=== PATIENT | female | born 1965 | race Caucasian/White ===

== ENCOUNTER 2017-03-02 07:49 | Emergency (ER) | payer MEDICAID ==
[2017-03-02 08:04] VITALS: BP 179/102
[2017-03-02] MEDS ORDERED: HYDROmorphone 0.5 MG/0.5 ML Syringe IM ONE (08:32)
[2017-03-02] MEDS ORDERED: Cyclobenzaprine 10 MG Tab PO ONE (08:32)
--- NOTE | 2017-03-02 08:54 | EDM.PDOC ---
ED HPI GENERAL MEDICAL PROBLEM - General Chief Complaint: Lower Extremity Injury/Pain Stated Complaint: LEFT HIP PAIN Time Seen by Provider: 03/02/17 08:33 Source of Information: Reports: Patient, Family History Limitations: Reports: No Limitations - History of Present Illness INITIAL COMMENTS - FREE TEXT/NARRATIVE: Pt arrived with pain in the lower back and radiating down her left leg. This is very severe at this point. pt did have a bite on the left buttock but this does not look red nd hot. Onset: Gradual Duration: Day(s):, Getting Worse Location: Reports: Back, Lower Extremity, Left Associated Symptoms: Reports: No Other Symptoms Left Hip Pain Score (Numeric/FACES): 10 - Related Data Allergies Allergy/AdvReac Type Severity Reaction Status Date / Time No Known Allergies Allergy Verified 11/15/16 07:43 Home Meds: Home Meds Albuterol [Ventolin HFA] 1 puff INH Q4H PRN 06/13/13 [History] Ferrous Sulfate [Ferrous Sulfate] 325 mg PO BID 06/13/13 [History] Imipramine HCl [Imipramine HCl] 25 mg PO DAILY 06/13/13 [History] Sertraline [Zoloft] 50 mg PO DAILY 06/13/13 [History] Triamterene/Hydrochlorothiazid [Triamterene-HCTZ 37.5-25 MG] 1 cap PO DAILY 11/24 [History] metFORMIN HCl [Metformin HCl ER] 500 mg PO DAILY 06/13/13 [History] Oxybutynin 5 mg PO DAILY 06/25/14 [History] *Lipitor 1 dose PO DAILY 11/15/16 [History] Fluticasone/Salmeterol [Advair 250-50 Diskus] 1 each IH BID 11/15/16 [History] Levothyroxine Sodium [Levothyroxine Sodium] 225 mcg PO DAILY 11/15/16 [History] Past Medical History Cardiovascular 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: High Cholesterol, Hypertension Respiratory 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: Asthma, Bronchitis, Recurrent, Pneumonia, Recurrent 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: Musculoskeletal 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: Arthritis Neurological 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: Migraines Psychiatric 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: Addiction, Depression Endocrine/Metabolic 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: Diabetes, Type II, Hypothyroidism Hematologic 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: Anemia - Infectious Disease History Infectious Disease 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: Other (See Below) Other Infectious Disease History: unknown - Past Surgical History HEENT Surgical 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: LASIK GI Surgical 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: Bariatric Procedure, Cholecystectomy Female Surgical 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: Section Social & Family History - Tobacco Use Smoking Status *Q: Unknown Ever Smoked Years of Tobacco use: 40 Packs/Tins Daily: 1 Used Tobacco, but Quit: No Second Hand Smoke Exposure: No - Caffeine Use Caffeine Use: Reports: None - Alcohol Use Days Per Week of Alcohol Use: 1 Number of Drinks Per Day: 4 Total Drinks Per Week: 4 - Recreational Drug Use Recreational Drug Use: No Review of Systems - Review of Systems Review Of Systems: See Below Constitutional: Reports: No Symptoms Eyes: Reports: No Symptoms Ears: Reports: No Symptoms Nose: Reports: No Symptoms Mouth/Throat: Reports: No Symptoms Respiratory: Reports: No Symptoms Cardiovascular: Reports: No Symptoms GI/Abdominal: Reports: No Symptoms Genitourinary: Reports: No Symptoms Musculoskeletal: Reports: Back Pain, Other (pain in the lower lumbar loraine radiating down the left leg. ) Skin: Reports: No Symptoms Psychiatric: Reports: Anxiety Trauma Exam - Physical Exam Exam: See Below Text/Narrative:: pt arrived with severe pain in left lower back and radiating down the left leg. . She is so uncomfortable she was unable to sit or lie down at first. Exam Limited By: No Limitations General Appearance: Reports: Alert, Severe Distress Head: Reports: Atraumatic Eyes: Bilateral Eye: EOMI, Normal Inspection, PERRL Ears: Reports: Normal TMs Nose: Reports: Normal Inspection Throat/Mouth: Reports: Normal Oropharynx Neck: Reports: Non-Tender Respiratory Exam: Reports: No Respiratory Distress Cardiovascular: Reports: Regular Rate, Rhythm GI/Abdominal: Reports: Soft, Non-Tender (Female) Exam: Deferred Rectal (Female) Exam: Deferred Back: Reports: Other (pt has a bite on her buttock area. She is tender in the left lower lumbar area. The pain is going down her left leg and she has a positive straight leg raising) Extremities: No Evidence of Injury Course - Vital Signs Last Recorded V/S: Last Vital Signs Temp 35.5 C 03/02/17 08:08 Pulse 76 03/02/17 08:08 Resp 20 03/02/17 08:08 BP 179/102 H 03/02/17 08:08 Pulse Ox 96 03/02/17 08:08 - Orders/Labs/Meds Orders: Active Orders 24 hr Category Date Time Status CULTURE URINE [RM] Stat Lab 03/02/17 11:25 Uncollected Labs: Laboratory Tests 03/02/17 03/02/17 03/02/17 Range/Units 09:17 09:17 11:05 WBC 8.6 (4.5-11.0) K/uL RBC 5.15 (3.30-5.50) M/uL Hgb 14.8 (12.0-15.0) g/dL Hct 44.1 (36.0-48.0) % MCV 86 (80-98) fL MCH 29 (27-31) pg MCHC 34 (32-36) % Plt Count 196 (150-400) K/uL Neut % (Auto) 77 H (36-66) % Lymph % (Auto) 14 L (24-44) % [place] % (Auto) 7 H (2-6) % Eos % (Auto) 2 (2-4) % Baso % (Auto) 0 (0-1) % Sodium 134 L (140-148) mmol/L Potassium 4.0 (3.6-5.2) mmol/L Chloride 97 L (100-108) mmol/L Carbon Dioxide 26 (21-32) mmol/L Anion Gap 15.0 H (5.0-14.0) mmol/L BUN 9 (7-18) mg/dL Creatinine 0.7 (0.6-1.0) mg/dL Est Cr Clr Drug Dosing 78.65 mL/min Estimated GFR (MDRD) > 60 (>60) Glucose 145 H (74-106) mg/dL Calcium 7.9 L (8.5-10.1) mg/dL Total Bilirubin 0.8 (0.2-1.0) mg/dL AST 18 (15-37) U/L ALT 21 (12-78) U/L Alkaline Phosphatase 96 (46-116) U/L Total Protein 7.0 (6.4-8.2) g/dL Albumin 3.5 (3.4-5.0) g/dL Globulin 3.5 (2.3-3.5) g/dL Albumin/Globulin Ratio 1.0 L (1.2-2.2) Urine Color Yellow Urine Appearance Cloudy Urine pH 5.0 (4.5-8.0) Ur Specific [place] 1.020 (1.008-1.030) Urine Protein Negative (NEGATIVE) mg/dL Urine Glucose (UA) Normal (NEGATIVE) mg/dL Urine Ketones Negative (NEGATIVE) mg/dL Urine Occult Blood Large (NEGATIVE) Urine Nitrite Negative (NEGATIVE) Urine Bilirubin Negative (NEGATIVE) Urine Urobilinogen Normal (NORMAL) mg/dL Ur Leukocyte Esterase Negative (NEGATIVE) Urine RBC 5-10 H (0-5) Urine WBC 0-5 (0-5) Ur Epithelial Cells Few Amorphous Sediment Rare Urine Bacteria Moderate Urine Mucus Rare Meds: Medications Discontinued Medications Generic Name Dose Route Start Last Admin Trade Name Freq PRN Reason Stop Dose Admin Cyclobenzaprine HCl 10 mg 03/02/17 08:32 03/02/17 08:37 Flexeril PO 03/02/17 08:33 10 mg ONETIME ONE Administration Diazepam 5 mg 03/02/17 10:16 Valium IVPUSH 03/02/17 10:17 ONETIME ONE Hydromorphone HCl 0.5 mg 03/02/17 08:32 03/02/17 08:37 Dilaudid IM 03/02/17 08:33 0.5 mg ONETIME ONE Administration Hydromorphone HCl 1 mg 03/02/17 09:51 03/02/17 09:55 Dilaudid IM 03/02/17 09:52 1 mg ONETIME ONE Administration Hydromorphone HCl 1 mg 03/02/17 11:31 Dilaudid IVPUSH 03/02/17 11:32 ONETIME ONE Hydromorphone HCl 1 mg 03/02/17 11:50 03/02/17 12:10 Dilaudid IM 03/02/17 11:51 1 mg ONETIME ONE Administration Ketorolac Tromethamine 60 mg 03/02/17 09:15 03/02/17 09:22 Toradol IM 03/02/17 09:16 60 mg ONETIME ONE Administration - Re-Assessments/Exams Free Text/Narrative Re-Assessment/Exam: 03/02/17 09:44 pt has a severe pain in her lumbar on the left. She had a lumbar spine which showed narrowing of L4_L5 She has no evidence of compression fractures. Her hip shows moderate degenerative changes. 03/02/17 13:03 pt received 2 mg ogf dilaudid , flexeril 10mg at hs. . She is much more comfortable. Lumbar spin series showed disc disease at L4_ L5. Because she was not getting good relief of the pain and it was so severe a Mri of the lumbar spine which showed a extruded disc at l4_ L5, this was torn. Departure - Departure Time of Disposition: 13:06 Disposition: Home, Self-Care 01 Condition: fair Clinical Impression: Lumbar disc disease - Discharge Information Referrals: Fernanda Vicente MD [Primary Care Provider] - Forms: ED Department Discharge Care Plan Goals: moist warm packs to the left lumbar area. rest, flexeril 10mg qam and qpm, percocet 5/325 q6h prn for pin, medrol dospak. appt with regular Dr in 1week for recheck on her back, Pt will see Dr Randall at the clinic. If not better she will need a epidural and orthopedic consult. - My Orders Last 24 Hours: My Active Orders 03/02/17 11:25 CULTURE URINE [RM] Stat - Assessment/Plan Last 24 Hours: My Active Orders 03/02/17 11:25 CULTURE URINE [RM] Stat
--- NOTE | 2017-03-02 08:58 | CR ---
Mild-moderate joint left hip. No fracture.
--- NOTE | 2017-03-02 09:03 | CR ---
5 lumbar type vertebral bodies. Moderate disc height loss L4-5. Mild facet arthropathy L4-5 and L5-S 1. No compression deformity. No definitive pars defects.
[2017-03-02] MEDS ORDERED: Ketorolac 60 MG/2 ML SDV IM ONE (09:15)
[2017-03-02] MEDS ORDERED: HYDROmorphone 1 MG/ML Syringe IM ONE ×2 (09:51→11:50)
[2017-03-02] MEDS ORDERED: HYDROmorphone 1 MG/ML Syringe IVPUSH ONE (11:31)
[2017-03-02] MEDS ORDERED: HYDROmorphone 1 MG/ML Syringe IV ONE (12:10)
--- NOTE | 2017-03-02 12:40 | MR ---
MR lumbar spine. Indication: Pain. Findings: Motion artifact. 5 lumbar type vertebral bodies. Conus terminates normal anatomic position . Moderate disc height loss L4-5. L1-2: Mild disc bulge. No canal stenosis or foraminal narrowing. L2-3: Mild disc bulge. No canal stenosis. No foraminal narrowing. L3-4: Mild facet arthropathy bilaterally. Mild disc bulge. AP dimension of canal is just under 10 mm indicating slight canal stenosis. No foraminal narrowing. L4-5: Best visualized on axial images there is a broad-based disc protrusion left laterally. Combine d with facet arthropathy there is severe left-sided foraminal narrowing. No right-sided foraminal na rrowing. Prominent epidural fat with mild spinal canal stenosis. Moderate facet arthropathy. Radial tear of the disc as well. L5-S1: Moderate mild facet arthropathy. Minimal bulging of the disc. No canal stenosis or foraminal narrowing. There is a left adrenal gland mass measuring 22 mm. Consider nonemergent, noncontrast CT abdomen fol low-up to confirm a an adenoma. Impression: 1. Left lateral disc protrusion L4-5. Radial tearing of the disc this location. Correlate for left L 4 nerve root radiculopathy.
== END 2017-03-02 13:35 | disposition home or self-care (01) ==
LOC: JP.ED 07:49
DX: M51.9 Unspecified thoracic, thoracolumbar and lumbosacral intervertebral disc disorder (principal); J45.909 Unspecified asthma, uncomplicated; I10 Essential (primary) hypertension; E78.00 Pure hypercholesterolemia, unspecified; F32.9 Major depressive disorder, single episode, unspecified; E11.9 Type 2 diabetes mellitus without complications; E03.9 Hypothyroidism, unspecified; Z79.899 Other long term (current) drug therapy; Z90.49 Acquired absence of other specified parts of digestive tract; Z98.84 Bariatric surgery status; Z98.890 Other specified postprocedural states
CPT/HCPCS: 36415; 72110; 72148; 73502; 80053; 81001; 85025; 87086; 87088; 87186; 96372; 99284; A9270; J1170; J1885

== ENCOUNTER 2017-12-02 17:11 | Emergency (ER) | payer MEDICAID ==
[2017-12-02 17:34] VITALS: BP 141/79
--- NOTE | 2017-12-02 17:45 | EDM.PDOC ---
ED HPI GENERAL MEDICAL PROBLEM - General Chief Complaint: Skin Complaint Stated Complaint: R FOREARM LACERATION Time Seen by Provider: 12/02/17 17:30 Source of Information: Reports: Patient History Limitations: Reports: No Limitations - History of Present Illness INITIAL COMMENTS - FREE TEXT/NARRATIVE: 52 yo female had a skin lesion removed from her R distal/dorsal forearm. Later she returned there and they took her stitches out. Today the wound opened up again and it was too late to go to the clinic so she came here. 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 (see below) (none) - Related Data Allergies Allergy/AdvReac Type Severity Reaction Status Date / Time No Known Allergies Allergy Verified 11/15/16 07:43 Home Meds: Home Meds Albuterol [Ventolin HFA] 1 puff INH Q4H PRN 06/13/13 [History] Ferrous Sulfate [Ferrous Sulfate] 325 mg PO BID 06/13/13 [History] Imipramine HCl [Imipramine HCl] 25 mg PO DAILY 06/13/13 [History] Sertraline [Zoloft] 50 mg PO DAILY 06/13/13 [History] Triamterene/Hydrochlorothiazid [Triamterene-HCTZ 37.5-25 MG] 1 cap PO DAILY 11/24 [History] metFORMIN HCl [Metformin HCl ER] 500 mg PO DAILY 06/13/13 [History] Oxybutynin 5 mg PO DAILY 06/25/14 [History] *Lipitor 1 dose PO DAILY 11/15/16 [History] Fluticasone/Salmeterol [Advair 250-50 Diskus] 1 each IH BID 11/15/16 [History] Levothyroxine Sodium [Levothyroxine Sodium] 225 mcg PO DAILY 11/15/16 [History] Past Medical History Cardiovascular 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: High Cholesterol, Hypertension Respiratory 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: Asthma, Bronchitis, Recurrent, Pneumonia, Recurrent 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: Musculoskeletal 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: Arthritis Neurological 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: Migraines Psychiatric 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: Addiction, Depression Endocrine/Metabolic 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: Diabetes, Type II, Hypothyroidism Hematologic 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: Anemia - Infectious Disease History Infectious Disease 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: Other (See Below) Other Infectious Disease History: unknown - Past Surgical History HEENT Surgical 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: LASIK GI Surgical 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: Bariatric Procedure, Cholecystectomy Female Surgical 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: Section Social & Family History - Tobacco Use Smoking Status *Q: Unknown Ever Smoked Years of Tobacco use: 40 Packs/Tins Daily: 1 Used Tobacco, but Quit: No Second Hand Smoke Exposure: No - Caffeine Use Caffeine Use: Reports: None - Alcohol Use Days Per Week of Alcohol Use: 1 Number of Drinks Per Day: 4 Total Drinks Per Week: 4 - Recreational Drug Use Recreational Drug Use: No ED ROS GENERAL - Review of Systems Review Of Systems: See Below Constitutional: Reports: No Symptoms Skin: Reports: Wound (1 cm open surgical wound to the dorsal/distal R forearm. No drainage or sign of infection. ). Denies: Bruising, Erythema Neurological: Reports: No Symptoms ED EXAM, SKIN/RASH Exam: See Below Exam Limited By: No Limitations General Appearance: Alert, WD/WN, No Apparent Distress, Obese Neurological: Alert, Oriented, CN II-XII Intact, Normal Cognition, No Motor/ Sensory Deficits Psychiatric: Normal Affect, Normal Mood Skin: Warm, Intact, Normal Color, No Rash, Wound/Incision (1 cm wound to the dorsal/distal R forearm. No redness. No drainage. Wound is gaping slightly. ) Location, Skin: Upper Extremity, Right Characteristics: Linear. No: Erythematous Associated features: No: Warmth, Tenderness, Swelling, Induration, Inflammation Course - Vital Signs Text/Narrative:: Wound steri stripped and a dry dressing applied. Last Recorded V/S: Last Vital Signs Temp 36.0 C 12/02/17 17:30 Pulse 70 12/02/17 17:30 Resp 16 12/02/17 17:30 BP 141/79 H 12/02/17 17:30 Pulse Ox 96 12/02/17 17:30 Departure - Departure Time of Disposition: 17:50 Disposition: Home, Self-Care 01 Condition: Good Clinical Impression: Encounter for wound re-check - Discharge Information Referrals: Fernanda Vicente MD [Primary Care Provider] - Forms: ED Department Discharge
== END 2017-12-02 18:04 | disposition home or self-care (01) ==
LOC: JP.ED 17:11
DX: S51.811D Laceration without foreign body of right forearm, subsequent encounter (principal); E78.00 Pure hypercholesterolemia, unspecified; I10 Essential (primary) hypertension; E11.9 Type 2 diabetes mellitus without complications; E03.9 Hypothyroidism, unspecified; Z79.899 Other long term (current) drug therapy; Z79.84 Long term (current) use of oral hypoglycemic drugs; Y83.9 Surgical procedure, unspecified as the cause of abnormal reaction of the patient, or of later complication, without mention of misadventure at the time of the procedure
CPT/HCPCS: 99283

== ENCOUNTER 2019-11-28 19:25 | Emergency (ER) | payer MEDICAID ==
[2019-11-28 19:55] VITALS: BP 124/79; PULSE 76
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
== END 2019-11-29 11:22 ==
LOC: JP.ED 19:25
DX: F32.9 Major depressive disorder, single episode, unspecified (principal); F10.120 Alcohol abuse with intoxication, uncomplicated; E78.00 Pure hypercholesterolemia, unspecified; I10 Essential (primary) hypertension; J45.909 Unspecified asthma, uncomplicated; E11.9 Type 2 diabetes mellitus without complications; E03.9 Hypothyroidism, unspecified; D64.9 Anemia, unspecified; F17.210 Nicotine dependence, cigarettes, uncomplicated; Y90.8 Blood alcohol level of 240 mg/100 ml or more; Z79.899 Other long term (current) drug therapy; Z79.890 Hormone replacement therapy; Z79.84 Long term (current) use of oral hypoglycemic drugs; Z79.51 Long term (current) use of inhaled steroids
CPT/HCPCS: 36415; 80048; 80305-QW; 80307; 81001; 84443; 85027; 99285

== ENCOUNTER 2021-01-08 18:10 | Emergency (ER) | payer MEDICAID ==
[2021-01-08 18:52] VITALS: BP 157/92; PULSE 85
[2021-01-08] MEDS ORDERED: Ketorolac 60 MG/2 ML SDV IM ONE (19:23)
--- NOTE | 2021-01-08 19:29 | EDM.PDOC ---
ED HPI GENERAL MEDICAL PROBLEM - General Chief Complaint: Back Pain or Injury Stated Complaint: LOWER BACK PAIN Time Seen by Provider: 01/08/21 19:10 Source of Information: Reports: Patient, Old Records, RN History Limitations: Reports: No Limitations - History of Present Illness INITIAL COMMENTS - FREE TEXT/NARRATIVE: 55 yo female here with low back pain getting worse over the past 3 days. Has not tried to get into the clinic for this. She denies injury. Pain is worse with walking. Has had this at least once in the past. No self tx. Onset: Gradual Onset Date: 01/05/21 Duration: Day(s): (3), Getting Worse Location: Reports: Back (low) Quality: Reports: Ache Severity: Moderate Improves with: Reports: Rest Worsens with: Reports: Movement (walking) Context: Reports: Other (See HPI) Associated Symptoms: Reports: No Other Symptoms Treatments ADDICTION PSYCHIATRIST: Reports: Other (see below) (none) Lower Back Pain Score (Numeric/FACES): 7 - Related Data Allergies Allergy/AdvReac Type Severity Reaction Status Date / Time No Known Allergies Allergy Verified 11/28/19 19:43 Home Meds: Home Meds Albuterol [Ventolin HFA] 1 puff INH Q4H PRN 06/13/13 [History] Ferrous Sulfate 325 mg PO BID 06/13/13 [History] Imipramine HCl 25 mg PO DAILY 06/13/13 [History] Sertraline [Zoloft] 50 mg PO DAILY 06/13/13 [History] Triamterene/Hydrochlorothiazid [Triamterene-HCTZ 37.5-25 MG] 1 cap PO DAILY 06/13/13 [History] metFORMIN HCl [Metformin HCl ER] 500 mg PO DAILY 06/13/13 [History] Oxybutynin 5 mg PO DAILY 06/25/14 [History] Fluticasone Propion/Salmeterol [Advair 250-50 Diskus] 1 each IH BID 11/15/16 [History] Levothyroxine Sodium 225 mcg PO DAILY 11/15/16 [History] atorvaSTATin [Lipitor] 10 mg PO DAILY 11/28/19 [History] Past Medical History Cardiovascular 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: High Cholesterol, Hypertension Respiratory 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: Asthma, Bronchitis, Recurrent, Pneumonia, Recurrent 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: Musculoskeletal 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: Arthritis, Back Pain, Chronic Neurological 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: Migraines Psychiatric 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: Addiction, Depression, Suicidal Ideation Endocrine/Metabolic 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: Diabetes, Type II, Hypothyroidism Hematologic 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: Anemia - Infectious Disease History Infectious Disease 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: Other (See Below) Other Infectious Disease History: unknown - Past Surgical History HEENT Surgical 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: LASIK GI Surgical 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: Bariatric Procedure, Cholecystectomy Female Surgical 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: Section Social & Family History - Tobacco Use Tobacco Use Status *Q: Current Every Day Tobacco User Years of Tobacco use: 30 Packs/Tins Daily: 0.5 - Caffeine Use Caffeine Use: Reports: Soda - Recreational Drug Use Recreational Drug Use: No ED ROS GENERAL - Review of Systems Review Of Systems: See Below Constitutional: Reports: No Symptoms HEENT: Reports: No Symptoms Respiratory: Reports: No Symptoms Cardiovascular: Reports: No Symptoms GI/Abdominal: Reports: No Symptoms Musculoskeletal: Reports: Back Pain (low) Skin: Reports: No Symptoms Neurological: Reports: No Symptoms ED EXAM,LOWER BACK PAIN/INJURY - Physical Exam Exam: See Below Exam Limited By: No Limitations General Appearance: Alert, WD/WN, No Apparent Distress, Obese Eye Exam: Bilateral Eye: Normal Inspection Back Exam: Normal Inspection, Other (R SI joint pain on palpation). No: CVA Tenderness (R), CVA Tenderness (L), Vertebral Tenderness Extremities: Normal Inspection, Normal Range of Motion, Non-Tender, No Pedal Edema Neurological: Alert, Normal Mood/Affect, CN II-XII Intact, No Motor/Sensory Deficits, Oriented x 3 Psychiatric: Normal Affect, Normal Mood Skin Exam: Warm, Dry, Intact, Normal Color, No Rash Course - Vital Signs Last Recorded V/S: Last Vital Signs Temp 36.4 C 01/08/21 18:46 Pulse 85 01/08/21 18:46 Resp 16 01/08/21 18:46 BP 157/92 H 01/08/21 18:46 Pulse Ox 97 01/08/21 18:46 - Orders/Labs/Meds Orders: Active Orders 24 hr Category Date Time Status Ketorolac [Toradol] Med 01/08/21 19:23 Once 60 mg IM ONETIME ONE Departure - Departure Time of Disposition: 20:00 Disposition: Home, Self-Care 01 Condition: Good Clinical Impression: Inflammation of right sacroiliac joint - Discharge Information *PRESCRIPTION DRUG MONITORING PROGRAM REVIEWED*: Not Applicable *COPY OF PRESCRIPTION DRUG MONITORING REPORT IN PATIENT KEYONNA: Not Applicable Referrals: Perico Puente NP [Primary Care Provider] - Additional Instructions: Take meloxicam 7.5 mg every 12 hrs starting at bedtime tonight. Add acetaminophen up to 1000 mg every 6 hrs for added pain relief. F/U with PT for further evaluation and treatment. See your provider if not resolving with Meloxicam and PT. Sepsis Event Note (ED) - Evaluation Sepsis Screening Result: No Definite Risk - Focused Exam Vital Signs: Vital Signs Temp Pulse Resp BP Pulse Ox 01/08/21 18:46 36.4 C 85 16 157/92 H 97 01/08/21 18:42 36.4 C 85 16 157/92 H 97 - My Orders Last 24 Hours: My Active Orders 01/08/21 19:23 Ketorolac [Toradol] 60 mg IM ONETIME ONE - Assessment/Plan Last 24 Hours: My Active Orders 01/08/21 19:23 Ketorolac [Toradol] 60 mg IM ONETIME ONE
== END 2021-01-08 20:04 | disposition home or self-care (01) ==
LOC: JP.ED 18:10
DX: M46.1 Sacroiliitis, not elsewhere classified (principal); J45.909 Unspecified asthma, uncomplicated; I10 Essential (primary) hypertension; E78.00 Pure hypercholesterolemia, unspecified; E11.9 Type 2 diabetes mellitus without complications; E03.9 Hypothyroidism, unspecified; D64.9 Anemia, unspecified; Z72.0 Tobacco use; Z79.84 Long term (current) use of oral hypoglycemic drugs; Z79.899 Other long term (current) drug therapy
CPT/HCPCS: 96372; 99282; 99283; J1885

== ENCOUNTER 2023-09-01 08:28 | Day surgery (SDC) | payer MEDICAID ==
[2023-09-01] MEDS ORDERED: Lactated Ringers 1,000 ML IV SCH (09:15)
[2023-09-01] MEDS ORDERED: fentaNYL 50 MCG/ML SDV ONE (09:31)
[2023-09-01] MEDS ORDERED: Midazolam 1 MG/ML 2 ML SDV ONE (09:31)
[2023-09-01] MEDS ORDERED: Propofol 200 MG/20 ML SDV ONE (09:31)
[2023-09-01 13:32] VITALS: BP 140/92; PULSE 61
== END 2023-09-01 13:37 | disposition home or self-care (01) ==
LOC: JP.SDS 08:28
PROVIDERS: ATTEND Family Medicine
DX: D12.8 Benign neoplasm of rectum (principal); I10 Essential (primary) hypertension; E11.9 Type 2 diabetes mellitus without complications; J44.9 Chronic obstructive pulmonary disease, unspecified
CPT/HCPCS: 88305; J2250; J2704; J3010; J7120

== ENCOUNTER 2024-07-03 17:11 | Emergency (ER) | payer MEDICAID ==
[2024-07-03 17:55] LABS: APPEARANCE,URINE CLOUDY (CLEAR); BILIRUBIN,URINE NEGATIVE (NEGATIVE); COLOR,URINE YELLOW (YELLOW); GLUCOSE,URINE NEGATIVE (NEGATIVE); KETONES,URINE TRACE mg/dL (NEGATIVE); LEUKOCYTE ESTERASE,URINE TRACE (NEGATIVE); NITRITE,URINE POSITIVE (NEGATIVE); OCCULT BLOOD,URINE TRACE-INTACT (NEGATIVE); PROTEIN,URINE NEGATIVE (NEGATIVE); UROBILINOGEN,URINE 0.2 EU/dL (0.2-1.0)
[2024-07-03 17:57] LABS: BASOPHILS PERCENT AUTO 0.3 % (0.1-1.3); EOSINOPHILS ABSOLUTE AUTO 0.12 K/uL (0.00-0.40); EOSINOPHILS PERCENT AUTO 1.8 % (0.0-5.4); HEMATOCRIT 39.7 % (34.3-46.0); IMMATURE GRAN PERCENT AUTO 0.1 % (0.0-0.7); LYMPHOCYTES ABSOLUTE AUTO 2.18 K/uL (0.8-3.3); LYMPHOCYTES PERCENT AUTO 32.2 % (11.4-47.7); MEAN CORPUSCULAR HEMOGLOBIN 30.4 pg (31.6-35.5); MEAN CORPUSCULAR HGB CONC 35.3 g/dL (31.6-35.5); MEAN CORPUSCULAR VOLUME 86.1 fL (81.4-99.0); MONOCYTES ABSOLUTE AUTO 0.43 K/uL (0.20-0.90); MONOCYTES PERCENT AUTO 6.4 % (3.3-12.6); NEUTROPHILS ABSOLUTE AUTO 4.01 K/uL (1.0-7.6); NEUTROPHILS PERCENT AUTO 59.2 % (40.0-78.1); PLATELET COUNT,PLT 181 K/uL (130-375); RED BLOOD CELL COUNT 4.61 M/uL (3.77-5.24); WHITE BLOOD CELL COUNT,WBC 6.8 K/uL (3.2-11.0)
[2024-07-03 17:58] LABS: BASOPHILS ABSOLUTE AUTO 0.02 K/uL (0.00-0.10); IMMATURE GRAN ABSOLUTE AUTO 0.01 K/uL (0.00-0.23)
[2024-07-03 18:01] LABS: AMORPHOUS SEDIMENT,URINE NOT SEEN; BACTERIA,URINE MANY; EPITHELIAL CELLS,URINE FEW; MUCUS,URINE NOT SEEN; RBC,URINE 0-5 (0-5); WBC,URINE 0-5 (0-5)
[2024-07-03 18:02] LABS: INR 1.1; PROTHROMBIN TIME 10.8 sec (9.2-10.6); PTT,PARTIAL THROMBOPLSTIN TIME 25.3 sec (21.8-27.3)
[2024-07-03 18:09] LABS: A/G RATIO 1.3 (1.2-2.2); ALANINE AMINOTRANSFERASE,ALT 56 U/L (12-78); ALKALINE PHOSPHATASE 81 U/L (46-116); ASPARTATE AMNIOTRANSFERASE,AST 47 U/L (15-37); BILIRUBIN TOTAL 0.5 mg/dL (0.2-1.0); BLOOD UREA NITROGEN,BUN 11 mg/dL (7-18); CARBON DIOXIDE,CO2 29 mmol/L (21-32); CHLORIDE,CL 94 mmol/L (100-108); CREATININE 0.9 mg/dL (0.6-1.0); ESTIMATED GFR 74 mL/min (>60); GLUCOSE RANDOM 76 mg/dL (74-106); MAGNESIUM 1.3 mg/dL (1.8-2.4); POTASSIUM,K 3.9 mmol/L (3.6-5.2); PROTEIN TOTAL,TP 7.1 g/dL (6.4-8.2); SODIUM,NA 134 mmol/L (140-148); TROPONIN I HIGH SENSITIVITY 6.5 pg/mL (<=60.3)
[2024-07-03 18:12] LABS: ANION GAP 14.9 mmol/L (5.0-14.0)
[2024-07-03] MEDS: Magnesium Sulfate/Water 2 GM in Premix Bag 1 BAG IV ONE (18:46)
[2024-07-03] MEDS: Pantoprazole 40 MG Tab.CR PO ONE (18:50)
[2024-07-03] MEDS: Nitrofurantoin Monohydrate/Macrocrystalline 100 MG Cap PO ONE (19:09)
[2024-07-03 19:35] VITALS: BP 156/84; PULSE 70
== END 2024-07-03 20:41 | disposition home or self-care (01) ==
LOC: JP.ED 17:11
DX: R07.89 Other chest pain (principal); N30.00 Acute cystitis without hematuria; E83.42 Hypomagnesemia; I10 Essential (primary) hypertension; E78.00 Pure hypercholesterolemia, unspecified; J45.909 Unspecified asthma, uncomplicated; E11.9 Type 2 diabetes mellitus without complications; E03.9 Hypothyroidism, unspecified; Z90.49 Acquired absence of other specified parts of digestive tract; Z79.899 Other long term (current) drug therapy; Z79.890 Hormone replacement therapy; Z79.82 Long term (current) use of aspirin
CPT/HCPCS: 36415; 71045; 80053; 80307; 81001; 83735; 84484; 85025; 85610; 85730; 87086; 93005; 96365; 96366; 99285; A9270; J3475; 87088; 87186

== ENCOUNTER 2024-07-08 11:46 | Emergency (ER) | payer MEDICAID ==
[2024-07-08 12:00] VITALS: BP 134/86; PULSE 73
[2024-07-08] MEDS: Hypromellose 0.3% Ophth Soln 15 ML Bottle EYEBOTH PRN (13:01)
== END 2024-07-08 13:14 | disposition home or self-care (01) ==
LOC: JP.ED 11:46
DX: H53.8 Other visual disturbances (principal); F17.210 Nicotine dependence, cigarettes, uncomplicated; I10 Essential (primary) hypertension; J44.9 Chronic obstructive pulmonary disease, unspecified; E78.00 Pure hypercholesterolemia, unspecified; E03.9 Hypothyroidism, unspecified; E11.9 Type 2 diabetes mellitus without complications; M19.90 Unspecified osteoarthritis, unspecified site; Z79.82 Long term (current) use of aspirin; Z79.84 Long term (current) use of oral hypoglycemic drugs; Z79.899 Other long term (current) drug therapy
CPT/HCPCS: 99283

== ENCOUNTER 2024-08-28 14:32 | Emergency (ER) | payer MEDICAID ==
[2024-08-28 14:48] VITALS: PULSE 84
[2024-08-28 17:39] VITALS: BP 145/91
== END 2024-08-28 17:41 | disposition home or self-care (01) ==
LOC: JP.ED 14:32
DX: S00.03XA Contusion of scalp, initial encounter (principal); S00.83XA Contusion of other part of head, initial encounter; I10 Essential (primary) hypertension; E78.00 Pure hypercholesterolemia, unspecified; J44.89 Other specified chronic obstructive pulmonary disease; M19.90 Unspecified osteoarthritis, unspecified site; E11.9 Type 2 diabetes mellitus without complications; E03.9 Hypothyroidism, unspecified; F17.210 Nicotine dependence, cigarettes, uncomplicated; Z90.49 Acquired absence of other specified parts of digestive tract; Z79.51 Long term (current) use of inhaled steroids; Z79.84 Long term (current) use of oral hypoglycemic drugs; Z79.890 Hormone replacement therapy; Z79.82 Long term (current) use of aspirin; Z79.899 Other long term (current) drug therapy; W01.198A Fall on same level from slipping, tripping and stumbling with subsequent striking against other object, initial encounter
CPT/HCPCS: 70450; 72125; 76377; 99283